=== PATIENT | female | born 1960 | race Caucasian/White ===

== ENCOUNTER 2020-07-24 08:49 | Day surgery (SDC) | payer BC ==
[~2020-07-24 08:49] MED LIST: ASPI81CH PO; BUPR100 PO; CIPR500 PO; DEXTROAMPHETAMINE; HORMONE REPLACEMENT; Hair, Skin & N1 EACH PO; LISHYD2025 PO; METF500 PO; METR500 PO; PRAV20 PO; ZESTORETIC 20-1 EACH PO; ZOLP10 PO
--- NOTE | 2020-07-24 10:35 | NUR ---
Ambulatory in Day Surgery Patient States Post-Procedure ride home has been arranged. History, Chart, Medications and Allergies reviewed before start of procedure.
--- NOTE | 2020-07-24 10:53 | NUR ---
07/24/20 1053 Charlotte Su [facility] CASE WITH DR. PHILIP AND DR. PERES. SEE ANTHESIA RECORD FOR CARE
--- NOTE | 2020-07-24 11:58 | NUR ---
Patient up to Ambulate independently. Gait steady. Discharge instructions reviewed with patient. Patient verbalizes understanding. Copy given to patient to take home. Discharged via wheelchair to private car for ride home.
== END 2020-07-24 23:12 | disposition home or self-care (01) ==
LOC: ORSCMMR 08:49 → ORD 10:30 → ORSCMMR 10:30
DX: Z12.11 Encounter for screening for malignant neoplasm of colon (principal); D12.4 Benign neoplasm of descending colon; D12.2 Benign neoplasm of ascending colon; Z86.010 Personal history of colon polyps; Z80.0 Family history of malignant neoplasm of digestive organs; I10 Essential (primary) hypertension; E11.9 Type 2 diabetes mellitus without complications; E78.00 Pure hypercholesterolemia, unspecified; F32.9 Major depressive disorder, single episode, unspecified; G47.33 Obstructive sleep apnea (adult) (pediatric); E66.01 Morbid (severe) obesity due to excess calories; Z68.41 Body mass index [BMI] 40.0-44.9, adult; Z79.84 Long term (current) use of oral hypoglycemic drugs; Z79.899 Other long term (current) drug therapy; F17.210 Nicotine dependence, cigarettes, uncomplicated
CPT/HCPCS: 82947; 88305; J2704; J7120

== ENCOUNTER → 2022-07-27 | Outpatient (CLI) | payer BC | LOC: LAB 08:11 → LAB SHORT 08:11 | DX: Q51.828 Other congenital malformations of cervix (principal) | CPT/HCPCS: 88305 ==